=== PATIENT | female | born 1965 | race Caucasian/White ===

== ENCOUNTER 2020-09-01 15:41 | Outpatient (RCR) | payer MEDICARE, SELFPAY | END 2020-11-02 23:59 | LOC: IMMUN 15:41 | PROVIDERS: PCP Family Medicine; Visit Provider Family Medicine | DX: Z23 Encounter for immunization (principal) | CPT/HCPCS: 0001A; 0002A; 91300 ==

== ENCOUNTER → 2023-11-06 | Outpatient (CLI) | payer OTHER, SELFPAY ==
[2023-11-06 15:59] LABS: Absolute Lymphocyte Count 2.61 X10^3/uL (0.83-4.51); Absolute Neutrophil Count 5.6 X10^3/uL (2.0-7.7); Basophil# 0.07 X10^3/uL; Basophil% 0.8 % (0-1); Eosinophil# 0.05 X10^3/uL; Eosinophils% 0.5 % (0-5); Hematocrit 45.8 % (37-47); Hemoglobin 15.1 g/dL (12.0-15.0); Lymphocyte # 2.61 X10^3/ul (0.83-4.51); Lymphocyte % 28.2 % (19-41); Mean Corpuscular Hgb 30.9 pg (27.0-32.0); Mean Corpuscular Volume 93.7 fL (81-99); Mean Platelet Vol. 11.4 fl (6.2-12.0); Monocyte# 0.88 X10^3/uL; Monocyte% 9.5 % (0-10); NRBC Flagged by Analyzer 0 % (0-5); Neutrophil % 60.6 % (47-70); Platelet Count 234 K/mm3 (150-450); RBC Distribution Width CV 13.7 % (11.6-14.6); Red Blood Count 4.89 M/mm3 (4.2-5.4); White Blood Count 9.3 K/mm3 (4.4-11.0)
[2023-11-06 16:25] LABS: AST(SGOT) 46 U/L (15-37); Alanine Aminotransfer ALT/SGPT 50 U/L (13-56); Albumin, Serum 3.9 g/dL (3.2-5.0); Alkaline Phosphatase 102 U/L (45-117); Anion Gap 5 (5-15); BUN 11 mg/dL (7-18); BUN/Creat Ratio 17.9 RATIO (10-20); Calcium,Total 9.6 mg/dL (8.5-10.1); Chloride 107 mmol/L (98-107); Creatinine, Serum 0.61 mg/dL (0.55-1.02); EST Glomerular Filtration Rate 106 mL/min (>60); Est Glom Filt Rate - Afr Amer 128 mL/min (>60); Globulin 4.1 g/dL (2.2-4.2); Glucose 114 mg/dL (74-106); Sodium Level 136 mmol/L (136-145)
[2023-11-06 16:51] LABS: Erythrocyte Sedimentation Rate 23 mm/hr (0-30)
== END | disposition home or self-care (01) ==
LOC: BIMLAB 11:57
PROVIDERS: PCP Family Medicine; Visit Provider Family Medicine
DX: Z00.00 Encounter for general adult medical examination without abnormal findings (principal); J44.9 Chronic obstructive pulmonary disease, unspecified; R35.0 Frequency of micturition
CPT/HCPCS: 36415; 80053; 85025; 85652

== ENCOUNTER → 2023-12-21 | Outpatient (CLI) | payer OTHER, SELFPAY ==
--- NOTE | 2023-12-21 15:29 | BI_ITS ---
MAMMOGRAPHY - BILATERAL SCREENING REASON FOR EXAM: Female, 58 years old. Routine annual screening examination. PERTINENT HISTORY: Non-contributory. History of prior bilateral stereotactic breast biopsies. TECHNIQUE: Digital bilateral breast stan (3D mammographic acquisition) in the CC and MLO projections. 2-D mediolateral oblique (MLO) and craniocaudad (CC) views of both breasts were obtained. CAD: Full Field Digital Mammography with Computer Added Detection was performed. COMPARISON: Comparison is made with prior outside examination of July 31, 2014. FINDINGS: Breast Composition: The breasts are heterogeneously dense, which may obscure small masses. There are no dominant masses or suspicious calcifications. Stable calcified nodule measuring 7.2 mm x 8.7 mm in the deep upper lateral aspect of the left breast. A tissue clip marker is seen in the deep upper slightly lateral aspect of the left breast as well as in the medial aspect of the left breast. No other significant abnormalities are identified. There has been no significant change since the prior study. BI/SCRN MAMM (CAD)W/STAN BILAT IMPRESSION: Stable bilateral screening mammogram. Yearly follow-up mammogram recommended. (A) ASSESSMENT CATEGORY: BIR ADS Category 2: Benign. A letter regarding these results will be sent to the patient by the facility within 30 days. Approximately 10% of breast cancers are not detected by mammography. A normal mammogram should not delay biopsy of a clinically suspicious abnormality. [id number] Electronically Signed: Shan Pillai MD at 8:25 EDT ,
== END | disposition home or self-care (01) ==
LOC: OPBI 15:29
PROVIDERS: PCP Family Medicine; Referring Provider Family Medicine; Visit Provider Family Medicine
DX: Z12.31 Encounter for screening mammogram for malignant neoplasm of breast (principal)
CPT/HCPCS: 77063; 77067

== ENCOUNTER → 2024-01-16 | Outpatient (CLI) | payer OTHER, SELFPAY | END | disposition home or self-care (01) | LOC: LABSPEC 10:32 | PROVIDERS: PCP Family Medicine; Referring Provider Family Medicine; Visit Provider Family Medicine | DX: Z01.419 Encounter for gynecological examination (general) (routine) without abnormal findings (principal) | CPT/HCPCS: 87624; 88142 ==

== ENCOUNTER → 2025-02-04 | Outpatient (CLI) | payer BC, SELFPAY ==
[2025-02-04 12:54] LABS: Hematocrit 43.2 % (37-47); Hemoglobin 14.8 g/dL (12.0-15.0); Immature Granulocytes Count 0.030 X10^3/uL (0.0-0.0); Mean Corp Hgb Conc 34.3 g/dL (32-36); Mean Corpuscular Volume 94.9 fL (81-99); Mean Platelet Vol. 11.3 fl (6.2-12.0); NRBC Flagged by Analyzer 0 % (0-5); Platelet Count 225 K/mm3 (150-450); RBC Distribution Width CV 13.6 % (11.6-14.6); RBC Distribution Width SD 47.8 fl (35.1-43.9); Red Blood Count 4.55 M/mm3 (4.2-5.4); White Blood Count 8.9 K/mm3 (4.4-11.0)
== END | disposition home or self-care (01) ==
PROVIDERS: PCP Family Medicine; Referring Provider Family Medicine; Visit Provider Family Medicine
DX: K62.5 Hemorrhage of anus and rectum (principal)
CPT/HCPCS: 36415; 85025

== ENCOUNTER → 2025-02-06 | Outpatient (CLI) | payer BC, SELFPAY ==
[2025-02-10 08:08] LABS: Calprotectin, Stool 775 ug/g (0-120)
== END | disposition home or self-care (01) ==
PROVIDERS: PCP Family Medicine; Referring Provider Family Medicine; Visit Provider Family Medicine
DX: K62.5 Hemorrhage of anus and rectum (principal)
CPT/HCPCS: 83993

== ENCOUNTER 2025-03-27 09:24 | Day surgery (SDC) | payer OTHER, SELFPAY ==
[2025-03-27] VITALS (7 sets, daily range): BP systolic 114–149; BP diastolic 47–100; PULSE 62–92; RESP 14–18; TEMP 36.1–36.2; O2SAT 95–100; BMI 21.8
--- NOTE | 2025-03-27 09:39 | PCM.PRE.AN2 ---
ASA Classification* ASA Classification ASA Classification: 2 Assessment & Plan Anesthesia* Anesthesia Assessment Anesthesia Assessment: Discussed sedation and/or anesthesia options, risks, benefits, and alternatives with patient/parents/legal guardian/POA. Questions invited. The patient/parents/legal guardian/POA seems to understand and agrees to proceed with anesthesia plan. Reviewed the physical assessment, medical history, allergy history and patient home medications list prior to surgery/procedure/anesthetic and documented any changes. Performed airway and anesthesia risk assessments. Anesthesia Type Anesthesia Type: MAC Anesthesia Focused Assessment* Airway Assessment Mouth opens: >3 cm Mallampati Score: II Labs Anesthesia Preop lab: CBC WBC, (4.4-11.0) 8.9 K/mm3 02/04/25, 10: RBC, (4.2-5.4) 4.55 M/mm3 02/04/25, 10: Hgb, (12.0-15.0) 14.8 g/dL 02/04/25, : Hct, (37-47) 43.2 % 02/04/25, : Plt Count, (150-450) 225 K/mm3 02/04/25, 10:31 CHEMISTRY Potassium, (3.5-5.1) 4.0 mmol/L 11/06/23, 11:57 Sodium, (136-145) 136 mmol/L 11/06/23, 11:57 BUN, (7-18) 11 mg/dL 11/06/23, 11:57 Creatinine, (0.55-1.02) 0.61 mg/dL 11/06/23, 11:57 Glucose, (74-106) 114 mg/dL H 11/06/23, 11:57 COAG Pre-Assessment Diagnosis/Proposed Procedure Planned Operative Procedure(s): COLONOSCOPY Anesthesia History 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 When Was Last Pacemaker Check QUESTION #4 FULL TEXT: You/Your Family Experience fever (hyperthermia) with Anesthesia Last Oral Intake Last Oral intake: Last Oral Intake NPO since Meds taken in AM with sips of water? Meds patient instructed to take am of surgery PONV PONV - installment loan collector: PONV - installment loan collector Female Yes 03/24/25 14:50 HX of Motion Sickness No 03/24/25 14:50 HX of N/V After Surgery No 03/24/25 14:50 Non-Smoker No 03/24/25 14:50 Duration of Surgery greater No 03/24/25 14:50 than 60 minutes Number of Risk Factors 1 03/24/25 14:50 PONV Score Low Risk 03/24/25 14:50 Height & Weight Height & Weight: Anesthesia: Height & Weight Height 5 ft 9 in 02/13/25 15:14 Respiratory Assessment Respiratory Assessment - installment loan collector: Respiratory Tract Infection Hx - installment loan collector Hx Respiratory Tract Infection No 03/24/25 14:50 STOP Sleep Apnea STOP Sleep Apnea - installment loan collector: STOP Sleep Apnea - installment loan collector Hx Hypertension No 03/24/25 14:50 Hx Sleep Apnea No 03/24/25 14:50 CPAP BIPAP Do you snore loudly (louder No 03/24/25 14:50 than talking or can be heard Do you often feel tired/ No 03/24/25 14:50 fatigued/ sleepy during daytime? Has anyone observed you stop No 03/24/25 14:50 breathing during sleep? STOP Results Negative 03/24/25 14:50 QUESTION #5 FULL TEXT : Do you snore loudly (louder than talking or can be heard through closed doors)? 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 Specify any problems Hx of Preganancy in last 3 No 03/24/25 14:50 Months Nurse Filling Out Transfusion [email or web address] 03/24/25 14:50 & Questions: Date: 03/24/25 03/24/25 14:50 Time: 14:54 03/24/25 14:50 Patient unable to answer at this time (ie. confused, unrespo /Reproduction History /Reproductive History - installment loan collector: /Reproductive Hx- installment loan collector Hx Now Gestational Age (in weeks): EDC: Hx Hx Para Hx Section SAB Active Medications Active Medications: Current Medications Generic Name Dose Route Start Last Admin Trade Name Freq PRN Reason Stop Dose Admin Lactated Ringer's 1,000 mls @ 15 mls/hr 03/27/25 09:45 IV .Q48H SHANTA PFSH Medical History Wears glasses Chronic cough Smoker Vision problems Hives Head ache Breast lump History of blood transfusion Bone fracture Back problem Arthrosis Seasonal allergies Alcohol abuse Home Medications Medication Instructions Recorded Last Taken Type ibuprofen 200 mg tablet (Advil) 200 mg PO Q6H PRN pain 10/05/23 Unknown History Allergy/AdvReac Type Severity Reaction Status Date / Time No Known Allergies Allergy Verified 03/24/25 14:50 Family History Mother Diabetes Father Diabetes Hypertension Sister Breast cancer Aunt Breast cancer Grandmother Stomach cancer Aunt Uterine cancer Surgical History H/O hand surgery H/O: hysterectomy History of back surgery Social History household members: significant other housing: house current occupational status: employed 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
[2025-03-27] MEDS: Lactated Ringers 1,000 ML 15 ML IV (10:06)
--- NOTE | 2025-03-27 10:30 | COLBX_PTH ---
PATIENT: TIMOTHY BUSTILLO LOC: EN U#:[id number] AGE/SX: 59/F ROOM: RE03/27/[address]: Dr. Francisco Jackson MD : 1965 BED: DIS: 03/27/2025 SPEC #: [id number] RECD: 03/27/25 13:27 STATUS: ZANDRA REVarinder #: [id number] AYE: 03/27/25 10:[address]: Francisco Jackson DEPT: SURGICAL PATHOLOGY RECD BY: Sergio Warren ENTERED: 03/27/25 15:20 SP TYPE: COLON BX OTHR DR: Dr. Isaiah Doll, DO Tissues: A - Transverse colon B - Sigmoid colon biopsy C - Sigmoid colon biopsy Procedures: Surgery Specimen Level IV HEADER OPERATION: Colonoscopy with polypectomy, endoscopic tattoo and biopsy PRE-OP DIAGNOSIS: Rectal bleeding TISSUE SUBMITTED: A- Transverse colon polyp, B- Sigmoid colon polyp biopsy, C- Sigmoid mass biopsy x2 MICROSCOPIC DIAGNOSIS A. Transverse colon, polyp, biopsy: - Tubular adenoma. B. Sigmoid colon, polyp, biopsy: - Tubulovillous adenoma with prolapse features - see note. Note: The tissue is distorted with cautery artifact. Involvement of the surgical margin by low grade dysplasia cannot be ruled out. C. Sigmoid colon, "mass", biopsy: - Consistent with hyperplastic polyp - see note. Note: If this biopsy represents only a portion of a larger mass lesion, the findings may not be account development representative. Correlation with clinical, endoscopic, and imaging findings is indicated. MICROSCOPIC DESCRIPTION Slides are reviewed. GROSS DESCRIPTION A. Received in fixative is one container labeled with the patient's name and designated "Transverse colon polyp." The specimen consists of four irregular fragments of tracy tissue that measure 0.1 to 0.5 cm. The specimen is totally submitted in one cassette. B. Received in fixative is one container labeled with the patient's name and designated "Sigmoid colon polyp biopsy." The specimen consists of a 1.5 x 0.8 x 0.2 cm aggregate of tracy tissue fragments and clot material; there is also a 1.4 x 1.2 x 0.4 cm tracy-red, granular sessile polyp. The resection margin is inked green and the polyp is serially sectioned. Entirely submitted in 2 cassettes as follows: B1: Aggregate of tissue flocculent materialB2: Serially sectioned polyp C. Received in fixative is one container labeled with the patient's name and designated "Sigmoid mass biopsy x2." The specimen consists of two irregular fragments of tracy tissue, each measuring 0.3 cm. The specimen is totally submitted in one cassette. PR 03/27/2025 CPT:13101f7
--- NOTE | 2025-03-27 11:03 | HP.PCM_ITS ---
HPI - General General Date of Admission: 03/27/25 Date of Service: 03/27/25 Chief Complaint: colonoscopy HPI Narrative The patient is a 59-year-old female who presents today with abdominal pain as well as some blood per rectum. It sounds as though this has been present for quite some time. She presents today for colonoscopy. She states her last colonoscopy was about 20 years ago. She states that her symptoms have been worse in the last few months. She has been noticing blood as well as some mucus in her stools as well as abdominal pressure. [facility] Medical History Wears glasses Chronic cough Smoker Vision problems Hives Head ache Breast lump History of blood transfusion Bone fracture Back problem Arthrosis Seasonal allergies Alcohol abuse Home Medications Medication Instructions Recorded Last Taken Type ibuprofen 200 mg tablet (Advil) 200 mg PO Q6H PRN pain 10/05/23 Unknown History Allergy/AdvReac Type Severity Reaction Status Date / Time No Known Allergies Allergy Verified 03/27/25 09:55 Family History Mother Diabetes Father Diabetes Hypertension Sister Breast cancer Aunt Breast cancer Grandmother Stomach cancer Aunt Uterine cancer Surgical History H/O hand surgery H/O: hysterectomy History of back surgery Social History household members: significant other housing: house current occupational status: employed 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 Smoking Status: Heavy Smoker (>10/day) alcohol intake: current alcohol intake frequency: 0-2 drinks per day Alcohol type: hard liquor details: 2-4 hard liquor drinks per day substance use type: does not use what type of physical activity do you participate in: walking frequency: 1-2 times per week seatbelt use: always do you feel safe at home: Yes Vital Signs Vital Signs Vital Signs: 03/27/25 09:56 03/27/25 09:56 Temperature 97.2 F L Temperature Source Temporal Pulse Rate 92 Respiratory Rate 14 Respiratory Pattern Normal Blood Pressure 134/100 H Blood Pressure Mean 111 Blood Pressure Source Monitor Blood Pressure Position Sitting Blood Pressure Location Left Arm Pulse Ox 97 Oxygen Delivery Method Room Air Weight Weight: 147 lb 11.355 oz Body Mass Index (BMI) 21.8 Physical Exam Const alert, oriented x3 and no apparent distress Assessment & Plan Assessment/Plan (1) Rectal bleeding: PLAN: Plan Colonoscopy planned for today.
[2025-03-27] MEDS: Lactated Ringers 1,000 ML 1000 ML IV (11:09)
--- NOTE | 2025-03-27 12:53 | PCM.POST.ANE ---
Anesthesia: Postop Eval I Current Vital Signs Temperature: 97.2 F Pulse Rate: 67 Blood Pressure: 114/47 Respiratory Rate: 16 Pulse Ox: 100 Oxygen Delivery Method: Room Air Assessment Airway patent: Yes Spontaneous unlabored respirations: Yes Mental status: Awake and Calm nausea: No Vomiting: No Anesthesia Complication: No Fluid Hydration Crystalloid volume administer (ml): 1,000 Total IV fluid infused: 1,000 Progress Note Anesthesia document: Postop Eval 1 completed: Yes
--- NOTE | 2025-03-27 13:18 | OP.COLON_ITS ---
Patient Name: Geri Booth Procedure Date: 03/27/2025 10:48 AM Date of : 1965 Age: 59 Procedure: Colonoscopy Indications: Family history of colon cancer in a first-degree relative before age 60 years Providers: Francisco Jackson MD Referring MD: Francisco Jackson MD Medicines: Monitored Anesthesia Care Patient Profile: Refer to note in patient chart for documentation of history and physical. Last Colonoscopy: more than 10 years ago. Complications: No immediate complications. Estimated blood loss: Minimal. Procedure: Pre-Anesthesia Assessment: - Prior to the procedure, a History and Physical was performed, and patient medications and allergies were reviewed. The patient's tolerance of previous anesthesia was also reviewed. The risks and benefits of the procedure and the sedation options and risks were discussed with the patient. All questions were answered, and informed consent was obtained. Prior Anticoagulants: The patient has taken no anticoagulant or antiplatelet agents. ASA Grade Assessment: III - A patient with severe systemic disease. After reviewing the risks and benefits, the patient was deemed in satisfactory condition to undergo the procedure. After I obtained informed consent, the scope was passed under direct vision. Throughout the procedure, the patient's blood pressure, pulse, and oxygen saturations were monitored continuously. The colonoscope was introduced through the anus and advanced to the cecum, identified by appendiceal orifice and ileocecal valve. The entire colon was examined. Moderate Sedation: See the other procedure note for documentation of moderate sedation with intraservice time. Scope In: 11:17:19 AM Scope Withdrawal Time 1 hour 0 minutes 57 seconds Scope Out: 12:44:21 PM Total Procedure Duration Time 1 hour 27 minutes 2 seconds Findings: The perianal and digital rectal examinations were normal. Multiple small-mouthed diverticula were found in the sigmoid colon. A 5 mm polyp was found in the transverse colon. The polyp was sessile. The polyp was removed with a hot snare. Resection and retrieval were complete. Verification of patient identification for the specimen was done by the nurse using the patient's name, date and medical record number. Estimated blood loss was minimal. Many semi-sessile polyps 10+ were found in the sigmoid colon. The polyps were 5 to 10 mm in size. These polyps were removed with a hot snare. Resection and retrieval were complete. Verification of patient identification for the specimen was done by the nurse using the patient's name, date and medical record number. Estimated blood loss: none. A 40 mm polypoid lesion was found in the sigmoid colon at 30 cm. The lesion was pedunculated. This appreared pedunculated but unable to snare due to large size. No bleeding was present. This was biopsied with a cold forceps for histology. Verification of patient identification for the specimen was done by the nurse using the patient's name, date and medical record number. Area was successfully injected with 3 mL Spot (carbon black) for tattooing. Estimated blood loss was minimal. Impression: - Diverticulosis in the sigmoid colon. - One 5 mm polyp in the transverse colon, removed with a hot snare. Resected and retrieved. - Many 5 to 10 mm polyps in the sigmoid colon, removed with a hot snare. Resected and retrieved. - Rule out malignancy, polypoid lesion in the sigmoid colon. Biopsied. Injected. Must consider polyposis given many polyps and very extensive family history of colon CA. will send off testing for [facility]/velasco Recommendation: - Discharge patient to home (ambulatory). - High fiber diet. - Await pathology results. HNPCC testing - may need colorectal evaluation if positive - Repeat colonoscopy in 1 year for surveillance. - Return to my office in 2 weeks. - Continue present medications. Procedure Code(s): --- Professional --- 39558, Colonoscopy, flexible; with removal of tumor(s), polyp(s), or other lesion(s) by snare technique 40177, 59, Colonoscopy, flexible; with biopsy, single or multiple 12134, Colonoscopy, flexible; with directed submucosal injection(s), any substance Diagnosis Code(s): --- Professional --- D12.3, Benign neoplasm of transverse colon (hepatic flexure or splenic flexure) D12.5, Benign neoplasm of sigmoid colon D49.0, Neoplasm of unspecified behavior of digestive system K57.30, Diverticulosis of large intestine without perforation or abscess without bleeding Z80.0, Family history of malignant neoplasm of digestive organs CPT copyright 2021 [employer]. All rights reserved. The codes documented in this report are preliminary and upon service girl review may be revised to meet current compliance requirements. Francisco Jackson MD 03/27/2025 1:17:50 PM This report has been signed electronically. Number of Addenda: 0 Note Initiated On: 03/27/2025 10:48 AM
--- NOTE | 2025-03-27 13:18 | OP.PROVAT_ITS ---
03/27/2025 Isaiah Doll Re : Colonoscopy procedure for Geri Booth Dear Dr. Doll This procedure was performed on Thursday, March 27, 2025. My impressions and recommendations are as follows: Impressions : - Diverticulosis in the sigmoid colon. - One 5 mm polyp in the transverse colon, removed with a hot snare. Resected and retrieved. - Many 5 to 10 mm polyps in the sigmoid colon, removed with a hot snare. Resected and retrieved. - Rule out malignancy, polypoid lesion in the sigmoid colon. Biopsied. Injected. Must consider polyposis given many polyps and very extensive family history of colon CA. will send off testing for [facility]/velasco Recommendations : - Discharge patient to home (ambulatory). - High fiber diet. - Await pathology results. HNP[facility] testing - may need colorectal evaluation if positive - Repeat colonoscopy in 1 year for surveillance. - Return to my office in 2 weeks. - Continue present medications. My findings are described in the full procedure note, which is enclosed. If I can be of further assistance, please feel free to contact me at . Sincerely, Francisco Jackson MD 03/27/2025 1:17:50 PM This report has been signed electronically.
--- NOTE | 2025-03-27 14:40 | POSTOPAN2_ITS ---
Anesthesia Postop Eval I Sum Postop Eval Completion status Anesthesia document: Postop Eval 1 completed: Yes Anesthesia Postop Eval I Summary Anesthesia Postop Eval I Summary: Anesthesia Postop Eval I: Assessment Summary Airway patent Yes 03/27/25 12:54 [email or web address] Spontaneous unlabored Yes 03/27/25 12:54 [email or web address] respirations Mental status Awake,Calm 03/27/25 12:54 [email or web address] nausea No 03/27/25 12:54 [email or web address] Vomiting No 03/27/25 12:54 [email or web address] Anesthesia Postop Eval I: Fluid Summary Crystalloid volume administer 1,000 03/27/25 12:54 [email or web address] (ml) Colloids volume administered ( ml) Blood Product volume administered (ml) Total IV fluid infused 1,000 03/27/25 12:54 [email or web address] Anesthesia Postop Eval I: Summary Notes Anesthesia Complication No 03/27/25 12:54 [email or web address] Anesthesia Complication Comment: Post-operative progress note Anesthesia: Postop Eval II Evaluation Mental status: Awake Pain Level: 0 nausea: No Vomiting: No
--- NOTE | 2025-03-27 14:40 | PCM.POSTANE2 ---
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 Spontaneous unlabored Yes 03/27/25 12:54 OCCUPATIONAL THERAPY [email or web address] respirations Mental status Awake,Calm 03/27/25 12:54 OCCUPATIONAL THERAPY [email or web address] nausea No 03/27/25 12:54 OCCUPATIONAL THERAPY [email or web address] Vomiting No 03/27/25 12:54 OCCUPATIONAL THERAPY [email or web address] Anesthesia Postop Eval I: Fluid Summary Crystalloid volume administer 1,000 03/27/25 12:54 OCCUPATIONAL THERAPY [email or web address] (ml) Colloids volume administered ( ml) Blood Product volume administered (ml) Total IV fluid infused 1,000 03/27/25 12:54 OCCUPATIONAL THERAPY [email or web address] Anesthesia Postop Eval I: Summary Notes Anesthesia Complication No 03/27/25 12:54 OCCUPATIONAL THERAPY [email or web address] Anesthesia Complication Comment: Post-operative progress note Anesthesia: Postop Eval II Evaluation Mental status: Awake Pain Level: 0 nausea: No Vomiting: No
== END 2025-03-27 13:50 | disposition home or self-care (01) ==
LOC: EN 09:26 → AC 09:27
PROVIDERS: PCP Family Medicine; Referring Provider Surgery; Visit Provider Surgery
DX: K62.5 Hemorrhage of anus and rectum (principal); Z90.710 Acquired absence of both cervix and uterus; F17.200 Nicotine dependence, unspecified, uncomplicated; K57.30 Diverticulosis of large intestine without perforation or abscess without bleeding; K63.5 Polyp of colon; Z80.0 Family history of malignant neoplasm of digestive organs
CPT/HCPCS: 45385; 45380; 36415; 88305; A4648; J2405